=== PATIENT | male | born 1940 | race Caucasian/White ===

== ENCOUNTER → 2016-12-31 | Outpatient (CLI) | payer MEDICARE, OTHER ==
[~2016-12-31] MED LIST: BAYER CHILD81 MG PO; CIPRO500 MG PO; DIOVAN160 MG PO; FLAGYL500 M1 PO; GLUCOPHAGE500 MG PO; LIPITOR40 MG PO; LOPRESSOR25 MG PO; MULTI VITAMIN1 EACH PO; NEXIUM40 MG PO
== END | disposition disaster alternative care site (69) ==
LOC: GRAD 14:28
DX: I12.9 Hypertensive chronic kidney disease with stage 1 through stage 4 chronic kidney disease, or unspecified chronic kidney disease (principal); N18.3 Chronic kidney disease, stage 3 (moderate)

== ENCOUNTER → 2016-12-31 | Outpatient (CLI) | payer MEDICARE, OTHER | LOC: LGSMG 12:46 | DX: N18.3 Chronic kidney disease, stage 3 (moderate) (principal) ==